=== PATIENT | male | born 1990 | race Hispanic/Latino ===

== ENCOUNTER 2017-02-27 08:54 | Emergency (ER) | payer OTHER ==
[~2017-02-27] VITALS: Ht 167.6 cm; Wt 91.5 kg
[2017-02-27] MEDS ORDERED: NAPROXEN 250 MG TAB PO ONE (09:45)
[2017-02-27 10:08] LABS: BASO # 0.1 K/mm3 (0.0-0.2); BASO % 0.9 % (0.0-1.0); EOS # 0.2 K/mm3 (0.0-0.50); EOS % 2.9 % (0.0-3.0); LARGE UNSTAINED CELL # 0.1 K/mm3 (0.0-0.4); LARGE UNSTAINED CELL % 1.8 % (0.0-4.0); LYMPH # 2.5 K/mm3 (1.5-6.5); LYMPH % 35.7 % (24.0-44.0); MEAN CORPUSCULAR HEMOGLOBIN 29.8 pg (27.0-33.0); MEAN CORPUSCULAR HGB CONC 35.2 g/dl (32.0-36.5); MEAN CORPUSCULAR VOLUME 84.6 fl (80.0-96.0); MONO # 0.3 K/mm3 (0.0-0.8); MONO % 3.5 % (0.0-5.0); NEUTROPHILS # 3.9 K/mm3 (1.8-7.7); NEUTROPHILS % 55.2 % (36.0-66.0); PLATELET COUNT, AUTOMATED 320 k/mm3 (150-450); WHITE BLOOD COUNT 7.1 K/mm3 (4.0-10.0)
[2017-02-27 10:24] LABS: ANION GAP 4 MEQ/L (8-16); BLOOD UREA NITROGEN 8 MG/DL (7-18); CALCIUM LEVEL 8.7 MG/DL (8.5-10.1); CARBON DIOXIDE LEVEL 31 MEQ/L (21-32); CHLORIDE LEVEL 106 MEQ/L (98-107); CREATININE FOR GFR 0.98 MG/DL (0.70-1.30); GLOMERULAR FILTRATION RATE > 60.0 (>60); GLUCOSE, FASTING 124 MG/DL (70-105); POTASSIUM SERUM 3.7 MEQ/L (3.5-5.1); SODIUM LEVEL 141 MEQ/L (136-145)
[2017-02-27] MEDS ORDERED: LEVO500T3 PO (10:58)
[2017-02-27 11:00] VITALS: BP 135/89
--- NOTE | 2017-02-27 12:15 | REP ---
Clinical: Left Testicular pain. Technique: Batista scale and color Doppler evaluation using linear and curved array transducer with color Doppler evaluation. Findings: The bilateral testicles and right epididymis are relatively normal in contour, size, echogenicity, vascularity and overall appearance. There is no evidence for intratesticular mass lesion, infectious/inflammatory process, with torsion. The left epididymis is mildly heterogeneous and prominent with a small left hydrocele which may reflect early epididymitis and should be correlated clinically. No obvious varicoceles are identified. Right testicle measures 4.5 x 2.2 x 3.3 cm cm. Left testicle measures 4.2 x 2.2 x 3.1 cm. Impression: 1. Possible early left epididymitis. 2. Otherwise normal scrotal ultrasound with normal appearance to the bilateral testicles. Signed by Jin Riddle MD 02/27/2017 10:36 A
--- NOTE | 2017-02-27 12:15 | REP ---
Clinical: Flank pain . Technique: Batista scale ultrasound examination using curved array transducer. Findings: The kidneys are essentially normal in contour size and echogenicity and reniform shape without hydronephrosis, nephrolithiasis, cystic or renal mass lesion. Right kidney measures 10.4 x 5.8 x 4.8 cm . Left kidney measures 10.6 x 5.5 x 6.3 cm . Bladder is incompletely distended and grossly normal by current evaluation. Impression: Normal renal ultrasound. Signed by Jin Riddle MD 02/27/2017 10:32 A
== END 2017-02-27 11:04 | disposition home or self-care (01) ==
LOC: M ED 09:47
DX: N45.1 Epididymitis (principal)

== ENCOUNTER 2017-06-22 08:31 | Day surgery (SDC) | payer OTHER ==
[~2017-06-22] VITALS: Ht 167.6 cm; Wt 88.9 kg
[~2017-06-22 08:31] MED LIST: LEVO500T3 PO
[2017-06-22] MEDS ORDERED: LR 1,000 ML IV ONE (08:45)
[2017-06-22] MEDS ORDERED: LIDOCAINE 2% MDV 20 ML VIAL As Ordered ONE (09:49)
[2017-06-22] MEDS ORDERED: dexameTHASONE 4 MG/ML 1ML VIAL (J1100) As Ordered ONE ×3 (09:50→10:57)
[2017-06-22] MEDS ORDERED: BUPIVACAINE HCL 0.5% 30 ML VIAL As Ordered ONE (09:50)
[2017-06-22] MEDS ORDERED: NEOSPORIN GU IRRIG 20 ML VIAL As Ordered ONE (09:50)
[2017-06-22] MEDS ORDERED: BACITRACIN PWD 50,000 UNITS VIAL As Ordered ONE (09:50)
[2017-06-22] MEDS ORDERED: LIDOCAINE 2% INJ 100 MG/5 ML SDV (FOR ANES.) As Ordered ONE (09:55)
[2017-06-22] MEDS ORDERED: ROCURONIUM BROMIDE 50 MG/5 ML VIAL/SYRINGE As Ordered ONE (09:55)
[2017-06-22] MEDS ORDERED: PROPOFOL 200 MG/20 ML VIAL As Ordered ONE (09:55)
[2017-06-22] MEDS ORDERED: fentaNYL 100 MCG/2 ML INJECTION (J3010) As Ordered ONE (09:55)
[2017-06-22] MEDS ORDERED: MIDAZOLAM INJ 2 MG/2 ML VIAL (J2250) As Ordered ONE ×2 (09:55→10:52)
[2017-06-22] MEDS ORDERED: ONDANSETRON 4MG/2ML VIAL (J2405) As Ordered ONE (09:55)
[2017-06-22] MEDS ORDERED: KETOROLAC 60 MG/2 ML VIAL (J1885) As Ordered ONE (09:55)
[2017-06-22] MEDS ORDERED: HYDROmorphone HCL 2 MG/ML 1ML VIAL (J1170) As Ordered ONE (10:50)
[2017-06-22] MEDS ORDERED: NEOSTIGMINE 10 MG/10 ML VIAL (J2710) As Ordered ONE (11:07)
[2017-06-22] MEDS ORDERED: GLYCOPYRROLATE INJ 0.2 MG/ML 2 ML VIAL As Ordered ONE (11:07)
[2017-06-22] MEDS ORDERED: ONDANSETRON 4MG/2ML VIAL (J2405) IV PRN (12:30)
[2017-06-22] MEDS ORDERED: fentaNYL 100 MCG/2 ML INJECTION (J3010) IV PRN (12:30)
[2017-06-22] MEDS ORDERED: PERCOCET 5MG/325MG TAB PO PRN (12:30)
[2017-06-22] MEDS ORDERED: METOCLOPRAMIDE INJ 10MG/2ML VIAL (J2765) IV PRN (12:30)
[2017-06-22] MEDS ORDERED: LR 1,000 ML IV SCH (12:30)
--- NOTE | 2017-06-22 14:43 | REP ---
RIGHT FOOT, TWO VIEWS: HISTORY: Postop. A cast is present obscuring bone detail. There is no acute fracture or dislocation. The joint spaces are normal in appearance. IMPRESSION: There is no acute fracture or dislocation. Signed by Rj Toney MD 06/22/2017 02:44 P
[2017-06-22 15:00] VITALS: BP 136/81
--- NOTE | 2017-06-22 17:34 | RO ---
DATE OF PROCEDURE: 06/22/2017 PREPROCEDURE DIAGNOSIS: Posterior ankle impingement (flexor hallucis longus tendonitis with os trigonum right foot and ankle). POSTPROCEDURE DIAGNOSIS: PROCEDURE: Tenolysis flexor hallucis longus tendon. Removal of os trigonum right talus. SURGEON: Dr. Ricki Rodriguez DPM PROPOSAL ENGINEER: None. ANESTHESIA: General. HEMOSTASIS: Thigh pneumatic tourniquet at 200 mmHg for 66 minutes. IRRIGATION: Dilute bacitracin, neomycin and polymyxin B solution. DRAINS UTILIZED: TLS drain. DESCRIPTION OF PROCEDURE: On 06/22/2017, this 27-year-old male was taken from his hospital room to the operating room, placed on the operating table in the prone position. Following the induction of general anesthesia, the thigh pneumatic tourniquet was rapidly inflated to 200 mmHg on the right thigh over a well-padded site. Sterile draping was completed, and the following procedure was performed: TENOLYSIS FLEXOR HALLUCIS LONGUS TENDON: Attention was directed to the patient's right foot, and a 4 cm incision was placed over the neurovascular bundle, over the calcaneus posterior to the medial malleolus on the right ankle. Dissection was then carried down to the neurovascular bundle and the laciniate ligament was released. The neurovascular bundle was then freely mobilized and pulled in a posterior direction. The tendon sheath of the flexor hallucis longus tendon was then opened, and it was released dorsally posterior to the talus and down to the sustentaculum kirsten. This released the flexor hallucis longus tendon, which was fully inspected. The muscle did not lie in a low position, and there was no nodules or tears of the flexor hallucis longus tendon. The wound was then flushed with copious amounts of dilute bacitracin, neomycin, and polymyxin B solution. The flexor hallucis longus tendon was then pulled in a posterior direction along with the neurovascular bundle, and the following procedure was performed: REMOVAL OF OS TRIGONUM RIGHT TALUS: Dissection was carried over to the lateral tubercle of the calcaneus where there was some irregularity of the posterior process and the ligament and capsular structures around the posterior talus were freed. Utilizing C-arm for additional help in localizing the os trigonum, the os trigonum was freed from the surrounding tissues and then removed. Utilizing a small rongeur, the posterior aspect of the talus was remodeled. The wound was flushed with copious amounts of dilute bacitracin, neomycin and polymyxin B solution. The wound then had the hallux and neurovascular bundle returned to its anatomic position. No injury to the nerve or neurovascular bundle could be identified. The structures appeared normal with no compression. A TLS drain was then placed in the wound and sutures with #2-0 silk to the skin. The subcutaneous tissues were then closed with #4-0 Monocryl in a simple interrupted type fashion. Skin incision was coapted and maintained utilizing #4-0 Prolene. A Cruz compressive dressing with a posterior splint was then applied. Thigh tourniquet was released. Patient was then sent to the recovery room with vital signs stable, patient afebrile, further monitoring the Anesthesia Department. All surgical specimens removed during the operative procedure were sent to Pathology for gross examination. Postoperative instructions given upon discharge.
== END 2017-06-22 15:10 | disposition home or self-care (01) ==
LOC: M SDC 08:31
PROVIDERS: ATTEND Podiatrist
DX: M76.821 Posterior tibial tendinitis, right leg (principal); Q68.8 Other specified congenital musculoskeletal deformities; M72.2 Plantar fascial fibromatosis; M76.61 Achilles tendinitis, right leg; M76.62 Achilles tendinitis, left leg; F41.9 Anxiety disorder, unspecified; F43.10 Post-traumatic stress disorder, unspecified; Z87.81 Personal history of (healed) traumatic fracture
CPT/HCPCS: 27680; 28120; 73630; 88300; 97116; J0690; J1100; J1170; J1885; J2250; J2405; J2710; J3010

== ENCOUNTER 2017-10-04 08:35 | Day surgery (SDC) | payer OTHER ==
[2017-10-04] MEDS: LR 1,000 ML IV (09:36)
[2017-10-04] MEDS ORDERED: LIDOCAINE 2% INJ 100 MG/5 ML SDV (FOR ANES.) As Ordered (10:08)
[2017-10-04] MEDS ORDERED: MIDAZOLAM INJ 2 MG/2 ML VIAL (J2250) As Ordered (10:08)
[2017-10-04] MEDS ORDERED: fentaNYL 100 MCG/2 ML INJECTION (J3010) As Ordered (10:08)
[2017-10-04] MEDS ORDERED: PROPOFOL 200 MG/20 ML VIAL As Ordered ×2 (10:08→13:12)
[2017-10-04] MEDS ORDERED: BUPIVACAINE HCL 0.5% 10 ML VIAL As Ordered (10:34)
[2017-10-04] MEDS ORDERED: dexameTHASONE 4 MG/ML 1ML VIAL (J1100) As Ordered ×2 (10:35→11:20)
[2017-10-04] MEDS ORDERED: ONDANSETRON 4MG/2ML VIAL (J2405) As Ordered (11:19)
[2017-10-04] MEDS ORDERED: METOCLOPRAMIDE INJ 10MG/2ML VIAL (J2765) As Ordered (11:19)
[2017-10-04] MEDS ORDERED: KETOROLAC 60 MG/2 ML VIAL (J1885) As Ordered (11:20)
[2017-10-04] MEDS: BACITRACIN PWD 50,000 UNITS VIAL As Ordered (11:20)
[2017-10-04] MEDS: LIDOCAINE 2% MDV 20 ML VIAL As Ordered (11:21)
[2017-10-04] MEDS: NEOSPORIN GU IRRIG 20 ML VIAL As Ordered (11:21)
[2017-10-04] MEDS ORDERED: HYDROmorphone HCL 2 MG/ML 1ML VIAL (J1170) As Ordered (11:46)
[2017-10-04] MEDS ORDERED: PHENYLephrine HCL 500 MCG/5 ML (100MCG/ML) SYRINGE (J2370) As Ordered (11:52)
[2017-10-04] MEDS: MEPERIDINE INJ 25 MG/ML VIAL (J2175) IV (13:30)
[2017-10-04] MEDS ORDERED: LR 1,000 ML IV (13:30)
[2017-10-04] MEDS ORDERED: fentaNYL 100 MCG/2 ML INJECTION (J3010) IV (13:30)
[2017-10-04] MEDS: PERCOCET 5MG/325MG TAB PO (14:20)
[2017-10-04] MEDS: ONDANSETRON 4MG/2ML VIAL (J2405) IV (14:20)
[2017-10-04] MEDS ORDERED: PERCOCET 5MG/325MG TAB As Ordered (15:23)
== END 2017-10-04 14:00 | disposition home or self-care (01) ==
LOC: M SDC 08:35
DX: M67.872 Other specified disorders of synovium, left ankle and foot (principal); M89.372 Hypertrophy of bone, left ankle and foot; M65.871 Other synovitis and tenosynovitis, right ankle and foot; M76.822 Posterior tibial tendinitis, left leg; F41.9 Anxiety disorder, unspecified; F43.10 Post-traumatic stress disorder, unspecified; Z79.899 Other long term (current) drug therapy; Z87.81 Personal history of (healed) traumatic fracture
CPT/HCPCS: 27680